=== PATIENT | male | born 1960 | race Caucasian/White ===

== ENCOUNTER 2017-03-02 01:20 | Day surgery (SDC) | payer OTHER ==
[2017-03-02] MEDS ORDERED: Atropine 1 mg/10 mL (Code) Syringe ONE (09:10)
--- NOTE | 2017-03-02 09:30 | NUR ---
Admitted today for a tilt table exam for lightheadedness/dizziness following a day of extreme exertion. Pt and understand procedure and plan of care. NSB with no ectopy and no chest pain/pressure, or lightheadedness.
--- NOTE | 2017-03-02 10:55 | NUR ---
Tilt table testing completed - Negative. Pt discharged home with his - Dr Kaur reviewed information with patient and patient's and has determined his lightheadedness is due to dehydration not cardiac involved. Pt understands he should drink more fluid when he is doing extreme bicycling 100+ miles a day. Dr Kaur advised patient to cancel his next appointment with him in March.
--- NOTE | 2017-03-02 10:56 | OUT PROC ---
[address] [address] PROCEDURE NOTE PATIENT: MADELINE RUSS : 1960 MR#: [id number] ADMIT: 03/02/2017 JOB ID: [id number] DATE OF PROCEDURE: 03/02/2017 PROCEDURE: Tilt table testing. INDICATIONS: History of dizziness, history of syncope. Tilt table testing is being done to rule out vasovagal components. CONSENT: Informed consent was obtained from the patient after explaining benefits and the risks which include, but not limited to, risk of blood pressure, profound bradycardia, asystole, etc. The patient verbalizes understanding. All the questions were answered. PATIENT ACCESS: Truong Kaur MD. DESCRIPTION OF PROCEDURE: The patient underwent tilt table testing as per standard protocol. He was monitored constantly with blood pressure recording, EKG monitoring and pulse oximetry monitoring. The patient has baseline sinus bradycardia. Heart rate about 48. During tilt table testing there was no significant drop in blood pressure or profound bradycardia or asystole or significant pauses. Heart rate increased from 48 to about 74. He did not cross more than 100 beats per minute. Initial blood pressure was 114/69. It remained stable. Oxygen saturation in the range of 94% to 98%. Telemetry did not reveal any significant new arrhythmias. The patient did not have any chest pain or dizziness or syncope. No symptoms were reported. No obvious tachycardia seen. There was no complication. CONCLUSION: Tilt table test is negative for vasovagal, vasodepressor or vasoinhibitory response. No obvious postural orthostatic significant tachycardia features. No significant drop in blood pressure during the standing posture. The patient has baseline sinus bradycardia due to increased vagal tone as he is athletic and rides a bicycle for miles. Discussed with the patient and his .
== END 2017-03-02 23:59 | disposition home or self-care (01) ==
LOC: SOUO 01:20
PROVIDERS: ATTEND Internal Medicine Cardiovascular Disease
DX: R42 Dizziness and giddiness (principal); R55 Syncope and collapse; I44.0 Atrioventricular block, first degree; I44.4 Left anterior fascicular block